=== PATIENT | female | born 1945 | race Caucasian/White ===

== ENCOUNTER 2018-11-19 12:37 | Outpatient (CLI) | payer MEDICARE, BC ==
[~2018-11-19] VITALS: Ht 171.4 cm; Wt 73.5 kg
[~2018-11-19 12:37] MED LIST: CALCIUM PO; CHOL50004 PO; EST1T PO; ESTR10TA VG; FURO-61 PO; HYDR-4353 PO; HYDR12.5 PO; LITH150C8 PO; LORA1TAB PO; MULT-1085 PO; NIFE60TA10 PO; SUMA100T PO; TRAZ-91 PO; [UNRECOGNIZED DRUG - CODE] PF
== END 2018-11-19 23:59 | disposition home or self-care (01) ==
LOC: RT 12:37
PROVIDERS: ATTEND Family Medicine
DX: J44.9 Chronic obstructive pulmonary disease, unspecified (principal); I10 Essential (primary) hypertension; G43.909 Migraine, unspecified, not intractable, without status migrainosus; Z87.891 Personal history of nicotine dependence
CPT/HCPCS: 94010; 94727; 94729

== ENCOUNTER 2019-09-15 10:01 | Emergency (ER) | payer MEDICARE, BC ==
[~2019-09-15] VITALS: Ht 170.2 cm; Wt 78.0 kg
[2019-09-15] MEDS ORDERED: ketorolac trometh. 30mg/ml inj. IV ONE (10:55)
[2019-09-15] MEDS ORDERED: ondansetron/PF 4mg/2ml inj IV ONE (10:55)
[2019-09-15] MEDS ORDERED: normal saline 1000ML IV soln IVB ONE (10:55)
[2019-09-15 11:30] LABS: EOSINOPHILS # (AUTO) 0.2 X10'3 (0-0.9); EOSINOPHILS % (AUTO) 5.5 % (0-6); HEMATOCRIT 38.7 % (35.0-45.0); HEMOGLOBIN 13.1 g/dl (12.0-16.0); LYMPHOCYTES # (AUTO) 1.1 X10'3 (1.1-4.8); LYMPHOCYTES % (AUTO) 29.4 % (21-51); MEAN CORPUSCULAR HEMOGLOBIN 31.2 PG (27.0-31.0); MEAN CORPUSCULAR VOLUME 91.7 FL (78-98); MEAN PLATELET VOLUME 7.1 FL (7.4-10.4); MONOCYTES # (AUTO) 0.5 X10'3 (0-0.9); MONOCYTES % (AUTO) 13.8 % (2-12); NEUTROPHILS # (AUTO) 1.8 X10'3 (1.8-7.7); NEUTROPHILS % (AUTO) 50.3 % (42-75); PLATELET COUNT 201 X10'3 (140-440); RED BLOOD COUNT 4.22 X10'6 (4.20-5.60); RED CELL DISTRIBUTION WIDTH 12.7 % (11.5-14.5); WHITE BLOOD COUNT 3.6 X10'3 (4.5-11.0)
[2019-09-15 11:46] LABS: ALANINE AMINOTRANSFERASE 23 U/L (12-78); ALBUMIN 4.2 G/DL (3.4-5.0); ALBUMIN/GLOBULIN RATIO 1.6 (1.1-1.5); ALKALINE PHOSPHATASE 43 IU/L (46-116); ANION GAP 4 (8-16); ASPARTATE AMINO TRANSFERASE 16 U/L (10-37); BILIRUBIN,TOTAL 0.5 MG/DL (0.1-1.0); BLOOD UREA NITROGEN 11 MG/DL (7-18); BUN/CREATININE RATIO 9.6 (6.6-38.0); CALCIUM 8.9 MG/DL (8.5-10.1); CHLORIDE 104 MMOL/L (99-107); CREATININE 1.14 MG/DL (0.40-0.90); GLUCOSE 94 MG/DL (70-104); LIPASE 115 U/L (73-393); POTASSIUM 4.3 MMOL/L (3.5-5.1); SODIUM 136 MMOL/L (135-145); TOTAL CARBON DIOXIDE 28.5 MMOL/L (24-32); TOTAL PROTEIN 6.9 G/DL (6.4-8.2); eGFR 46 ML/MIN
[2019-09-15 11:50] VITALS: BP 159/86
[2019-09-15 11:55] LABS: CLARITY,URINE CLOUDY (Clear); COLOR,URINE YELLOW (Yellow); GLUCOSE, URINE NEGATIVE (Neg); KETONES,URINE TRACE mg/dl (Neg); LEUKOCYTE ESTERASE ,URINE NEGATIVE (Neg); NITRITES, URINE NEGATIVE (Neg); OCCULT BLOOD,URINE NEGATIVE (Neg); PH,URINE 5.5 (4.8-8.0); PROTEIN,URINE NEGATIVE (Neg)
[2019-09-15 12:03] LABS: UA COLLECTION TYPE CLN CATCH MIDSTREAM
[2019-09-15 12:04] LABS: SQUAMOUS EPITHELIAL CELL,UR MANY /LPF (FEW)
[2019-09-15 12:05] LABS: MUCUS STRANDS MANY /LPF (Neg)
[2019-09-15 12:07] LABS: BACTERIA,URINE FEW /HPF (Neg); WBC,URINE 0-4 /HPF (0-4)
[2019-09-15] MEDS ORDERED: CIPR-230 PO (12:10)
[2019-09-15] MEDS ORDERED: CYCL-1 PO (12:46)
[2019-09-15] MEDS ORDERED: orphenadrine citrate 60mg/2ml inj. IM ONE (12:50)
== END 2019-09-15 13:10 | disposition home or self-care (01) ==
LOC: ER 10:02
DX: R10.11 Right upper quadrant pain (principal); R10.31 Right lower quadrant pain; M19.90 Unspecified osteoarthritis, unspecified site; Z79.899 Other long term (current) drug therapy; Z88.8 Allergy status to other drugs, medicaments and biological substances; Z88.5 Allergy status to narcotic agent
CPT/HCPCS: 36415; 74176; 80053; 81001; 83690; 85025; 96372; 96374; 96375; 99284; J1885; J2360; J2405; J7030

== ENCOUNTER 2020-01-29 14:25 | Emergency (ER) | payer MEDICARE, BC ==
[~2020-01-29] VITALS: Ht 170.2 cm; Wt 77.0 kg
[~2020-01-29 14:25] MED LIST changes: +CYCL-1 PO
--- NOTE | 2020-01-29 15:01 | NUR ---
Ubaldo Simmons, patient's ,
[2020-01-29 15:55] VITALS: BP 159/86
[2020-01-29] MEDS ORDERED: LORA-269 PO (16:03)
[2020-01-29] MEDS ORDERED: LORazepam 1 MG tablet PO ONE (16:05)
== END 2020-01-29 16:17 | disposition home or self-care (01) ==
LOC: ER 14:25
DX: F41.9 Anxiety disorder, unspecified (principal); Z76.0 Encounter for issue of repeat prescription; F31.9 Bipolar disorder, unspecified; M19.90 Unspecified osteoarthritis, unspecified site; Z56.0 Unemployment, unspecified; Z79.899 Other long term (current) drug therapy; Z88.8 Allergy status to other drugs, medicaments and biological substances; Z88.5 Allergy status to narcotic agent
CPT/HCPCS: 99283

== ENCOUNTER 2020-06-11 11:48 | Inpatient (IN) | payer MEDICARE, BC ==
[~2020-06-11] VITALS: Ht 170.2 cm; Wt 76.4 kg
[~2020-06-11 11:48] MED LIST changes: +LORA-269 PO
[2020-06-11 13:46] LABS: EOSINOPHILS # (AUTO) 0.1 X10'3 (0-0.9); EOSINOPHILS % (AUTO) 2.6 % (0-6); HEMATOCRIT 38.1 % (35.0-45.0); HEMOGLOBIN 12.7 g/dl (12.0-16.0); LYMPHOCYTES # (AUTO) 0.9 X10'3 (1.1-4.8); LYMPHOCYTES % (AUTO) 31.1 % (21-51); MEAN CORPUSCULAR HEMOGLOBIN 30.2 PG (27.0-31.0); MEAN CORPUSCULAR HGB CONC 33.5 g/dL (33.0-36.5); MEAN CORPUSCULAR VOLUME 90.2 FL (78-98); MEAN PLATELET VOLUME 7.2 FL (7.4-10.4); MONOCYTES # (AUTO) 0.4 X10'3 (0-0.9); MONOCYTES % (AUTO) 12.3 % (2-12); NEUTROPHILS # (AUTO) 1.6 X10'3 (1.8-7.7); PLATELET COUNT 208 X10'3 (140-440); RED BLOOD COUNT 4.22 X10'6 (4.20-5.60); RED CELL DISTRIBUTION WIDTH 13.3 % (11.5-14.5)
[2020-06-11 13:57] LABS: ALANINE AMINOTRANSFERASE 25 U/L (12-78); ALBUMIN 4.2 G/DL (3.4-5.0); ALBUMIN/GLOBULIN RATIO 1.3 (1.1-1.5); ALKALINE PHOSPHATASE 41 IU/L (46-116); ANION GAP 7 (8-16); ASPARTATE AMINO TRANSFERASE 21 U/L (10-37); BILIRUBIN,TOTAL 0.5 MG/DL (0.1-1.0); BLOOD UREA NITROGEN 14 MG/DL (7-18); CALCIUM 9.3 MG/DL (8.5-10.1); CHLORIDE 103 MMOL/L (99-107); GLUCOSE 94 MG/DL (70-104); POTASSIUM 3.8 MMOL/L (3.5-5.1); SODIUM 139 MMOL/L (135-145); TOTAL CARBON DIOXIDE 29.2 MMOL/L (24-32); TOTAL PROTEIN 7.4 G/DL (6.4-8.2); eGFR 54 ML/MIN
[2020-06-11 14:08] LABS: TOTAL CELLS COUNTED 100
[2020-06-11 14:09] LABS: PLATELET ESTIMATE NORMAL
[2020-06-11] MEDS ORDERED: fentaNYL/PF 50MCG/1 ML 2ML syringe IV ONE (14:20)
[2020-06-11] MEDS: nitroGLYCERIN 0.4mg SUBLingual tab SL PRN ×4 (14:41→17:20)
[2020-06-11] MEDS ORDERED: nitroGLYCERIN 0.2mg/hour patch TD ONE (15:15)
[2020-06-11] MEDS ORDERED: ondansetron/PF 4mg/2ml inj IV PRN (15:15)
[2020-06-11] MEDS ORDERED: potassium Cl 20 mEq SR tablet PO PRN ×2 (15:15)
[2020-06-11] MEDS ORDERED: potassium CL 10mEq/100ml bag 100 ML IV PRN ×2 (15:15)
[2020-06-11] MEDS ORDERED: acetaminophen 325mg tablet PO PRN (15:15)
[2020-06-11] MEDS ORDERED: magnesium 4gm in 100ml NS 100 ML IV PRN (15:15)
[2020-06-11] MEDS ORDERED: magnesium Cl slow-release 64mg tablet PO PRN (15:15)
[2020-06-11] MEDS ORDERED: magnesium 2GM in 50ml NS 50 ML IV PRN (15:15)
[2020-06-11] MEDS ORDERED: enoxaparin 100mg/ml syringe SUBCUT ONE (15:15)
[2020-06-11] MEDS ORDERED: TRAZ-256 PO (15:36)
[2020-06-11] MEDS ORDERED: LAMO150T6 PO (15:36)
[2020-06-11] MEDS ORDERED: ZOLP10TA PO (15:36)
[2020-06-11] MEDS ORDERED: FLUT1BLS9 IH (15:36)
[2020-06-11] MEDS ORDERED: ALBU8.5H8 IH (15:36)
[2020-06-11] MEDS ORDERED: PRAZ5CAP PO (15:36)
[2020-06-11] MEDS ORDERED: GALC120S SQ (15:36)
--- NOTE | 2020-06-11 15:51 | NUR ---
report called, echo at bedside, will transfer when test is done.
--- NOTE | 2020-06-11 15:55 | NUR ---
Patient in room MED 312. I have received report from Gary CONTE RN and had the opportunity to ask questions and assume patient care.
[2020-06-11 16:30] VITALS: BP 148/82
--- NOTE | 2020-06-11 16:30 | NUR ---
Pt arrived to room 312. A&O x4. No s/s of distress. VSS. Oreinted to room call light etc. Lungs CTA bilat. BS x4 soft non-tender. No edema. Pt states no CP at the moment. This nurse agrees with further assessment done by the nurse in ER.
[2020-06-11 17:00] VITALS: BP 104/62
--- NOTE | 2020-06-11 17:10 | NUR ---
Checked on pt she stated she had some chest pressure and pain 7/10 mid-sternal giving NTG per order and monitoring. She denies any other s/s.
[2020-06-11 17:20] VITALS: BP 130/64
--- NOTE | 2020-06-11 17:29 | NUR ---
Page to Dr Ness PAGER ID: [phone] MESSAGE: [phone] Navid Simmons. Has had NTG x 3 and still has chest pressure and 6/10 pain. Fentanyl was given in ER with 1 dose NTG and worked lasted from 1441 to now. No other s/s. Brittney [phone] Thanks
[2020-06-11 17:40] VITALS: BP 111/57
--- NOTE | 2020-06-11 18:30 | NUR ---
PAGER ID: [phone] MESSAGE: [phone]: Navid Simmons: Has been on Ativan for years 1 MG BID, has withdrawals without. Having a panic attack now, pt crying, shaking. Zunilda [id number]
[2020-06-11] MEDS ORDERED: GALCANEZUMAB GNLM SQ SCH (18:55)
[2020-06-11] MEDS ORDERED: nitroGLYCERIN 0.4mg SUBLingual tab SL PRN (18:55)
[2020-06-11] MEDS ORDERED: LORazepam 1 MG tablet PO PRN (18:55)
[2020-06-11] MEDS ORDERED: ESTRADIOL VG SCH (18:55)
[2020-06-11] MEDS ORDERED: non-formulary drug (Zolpidem Tartrate (Ambien) 1 TAB) PO PRN (18:55)
[2020-06-11] MEDS ORDERED: furosemide 20MG tablet PO PRN (18:55)
[2020-06-11] MEDS ORDERED: ALBUTEROL INHALER 1 PUFF/90 MCG INHALER IH PRN (18:55)
[2020-06-11] MEDS ORDERED: metoprolol tartrate 1mg/ml inj IV PRN (18:55)
[2020-06-11] MEDS ORDERED: regadenoson 0.4mg/5ml syringe IV ONE (18:55)
[2020-06-11] MEDS ORDERED: aminophylline 250mg/10ml inj. IV PRN (18:55)
--- NOTE | 2020-06-11 19:06 | NUR ---
PAGER ID: [phone] MESSAGE: [phone] pt Troy PERRY left AMA despite medications being continued.
[2020-06-11] MEDS ORDERED: K and/or MAG REPLACEMENT MC SCH (20:00)
[2020-06-11] MEDS ORDERED: FLUTICASONE PROPION IH SCH (20:00)
[2020-06-11] MEDS ORDERED: non-formulary drug (Lamotrigine 1 TAB) PO SCH (20:00)
[2020-06-11] MEDS ORDERED: SALMETEROL IH SCH (20:00)
[2020-06-11] MEDS ORDERED: docusate sod 100mg capsule PO SCH (20:00)
[2020-06-11] MEDS ORDERED: non-formulary drug (Trazodone HCl 3 TAB) PO SCH (21:00)
[2020-06-11] MEDS ORDERED: prazosin 5mg capsule PO SCH (21:00)
[2020-06-12] MEDS ORDERED: nitroGLYCERIN 1gm ointment UD TP SCH
[2020-06-12] MEDS ORDERED: estradiol 1mg tablet PO SCH (08:00)
== END 2020-06-11 19:03 | disposition left against medical advice (07) | DRG 313 ==
LOC: ER 11:48 → ED HOLD 15:15 → MED 3N 16:34
PROVIDERS: ADMIT Internal Medicine; ATTEND Internal Medicine
DX: R07.9 Chest pain, unspecified (principal); Z96.641 Presence of right artificial hip joint; Z53.29 Procedure and treatment not carried out because of patient's decision for other reasons; F41.8 Other specified anxiety disorders; R55 Syncope and collapse; Z90.710 Acquired absence of both cervix and uterus; Z88.8 Allergy status to other drugs, medicaments and biological substances
CPT/HCPCS: 36415; 71045; 80053; 84484; 85007; 85025; 87081; 93005; 93306; 96374; 99285; G0378; J1650; J3010

== ENCOUNTER 2020-06-24 06:01 | Day surgery (SDC) | payer MEDICARE, BC ==
[2020-06-23 10:36] LABS: EOSINOPHILS # (AUTO) 0.1 X10'3 (0-0.9); EOSINOPHILS % (AUTO) 4.2 % (0-6); HEMATOCRIT 39.1 % (35.0-45.0); HEMOGLOBIN 13.2 g/dl (12.0-16.0); LYMPHOCYTES # (AUTO) 0.9 X10'3 (1.1-4.8); LYMPHOCYTES % (AUTO) 33.1 % (21-51); MEAN CORPUSCULAR HGB CONC 33.7 g/dL (33.0-36.5); MEAN CORPUSCULAR VOLUME 91.8 FL (78-98); MEAN PLATELET VOLUME 7.1 FL (7.4-10.4); MONOCYTES # (AUTO) 0.4 X10'3 (0-0.9); MONOCYTES % (AUTO) 13.1 % (2-12); NEUTROPHILS # (AUTO) 1.4 X10'3 (1.8-7.7); NEUTROPHILS % (AUTO) 48.6 % (42-75); PLATELET COUNT 203 X10'3 (140-440); RED BLOOD COUNT 4.25 X10'6 (4.20-5.60); RED CELL DISTRIBUTION WIDTH 13.4 % (11.5-14.5); WHITE BLOOD COUNT 2.8 X10'3 (4.5-11.0)
[2020-06-23 10:49] LABS: PARTIAL THROMBOPLASTIN TIME 27 SECONDS (22-32)
[2020-06-23 10:51] LABS: ALBUMIN 3.8 G/DL (3.4-5.0); ANION GAP 3 (8-16); BLOOD UREA NITROGEN 17 MG/DL (7-18); BUN/CREATININE RATIO 19.3 (6.6-38.0); CHLORIDE 103 MMOL/L (99-107); CREATININE 0.88 MG/DL (0.40-0.90); GLUCOSE 100 MG/DL (70-104); POTASSIUM 4.5 MMOL/L (3.5-5.1); SODIUM 136 MMOL/L (135-145); TOTAL CARBON DIOXIDE 29.8 MMOL/L (24-32); eGFR 62 ML/MIN
[2020-06-23 11:06] LABS: TOTAL CELLS COUNTED 100
[2020-06-23 11:07] LABS: PLATELET ESTIMATE NORMAL
[2020-06-24] VITALS (11 sets, daily range): BP systolic 123–139; BP diastolic 60–75
[~2020-06-24] VITALS: Ht 170.2 cm; Wt 74.9 kg
[~2020-06-24 06:01] MED LIST changes: +ALBU8.5H8 IH; -CALCIUM PO; -CHOL50004 PO; -CYCL-1 PO; +FLUT1BLS9 IH; +GALC120S SQ; -HYDR-4353 PO; -HYDR12.5 PO; +LAMO150T6 PO; -LITH150C8 PO; -LORA-269 PO; -MULT-1085 PO; -NIFE60TA10 PO; +PRAZ5CAP PO; -SUMA100T PO; +TRAZ-256 PO; -TRAZ-91 PO; +ZOLP10TA PO; -[UNRECOGNIZED DRUG - CODE] PF
[2020-06-24] MEDS ORDERED: diphenhydrAMINE 25mg capsule PO PRN (06:20)
[2020-06-24] MEDS ORDERED: LORazepam 0.5 MG tablet PO PRN (06:20)
[2020-06-24] MEDS ORDERED: LIDOcaine/PRILOcaine 5gm cream TP ONE (06:25)
[2020-06-24] MEDS ORDERED: MULT-1085 PO (06:32)
[2020-06-24] MEDS ORDERED: sodium bicarbonate (8.4%) inj. 150 ML in dextrose 5%-water 1,000 ML IV ONE (07:00)
[2020-06-24] MEDS ORDERED: fentaNYL/PF 50MCG/1 ML 2ML syringe ONE (07:46)
[2020-06-24] MEDS ORDERED: nitroGLYCERIN-Tridil 50MG/D5W 250 ML IV ONE (07:46)
[2020-06-24] MEDS ORDERED: LIDOcaine 1% (10mg/ml)w/preservative injection 20ml MDV ONE (07:46)
[2020-06-24] MEDS ORDERED: midazolam 2 mg/2 ml injection ONE (07:46)
[2020-06-24] MEDS ORDERED: verapamil 2.5 mg/ml inj IV ONE (07:46)
[2020-06-24] MEDS ORDERED: iohexol 350MG/ML 100ml bottle IV ONE (07:47)
[2020-06-24] MEDS ORDERED: heparin 1,000unit/ml 10ml vial 10 ML ONE (07:47)
[2020-06-24] MEDS ORDERED: iohexol 350 MG/ML 50ML vial IV ONE (07:47)
--- NOTE | 2020-06-24 12:40 | NUR ---
REMOVED VASCULAR BAND, CLEANSED SITE GENTLY WITH STERILE NS AND DRESSED WITH STERILE 2X2 AND TEGADERM. TOPPED WITH FOLDED 4X4 AND COBAN FOR COMFORT AND SUPPORT, PT AWARE THAT SHE MAY LOOSEN OR REMOVE 4X4'S AND COBAN AT ANY TIME FOR COMFORT. TEGADERM TO BE REMOVED BEFORE SHOWER, IN 24-48 HOURS. PT STATES UNDERSTANDING.
== END 2020-06-24 14:00 | disposition home or self-care (01) ==
LOC: SSTAY O 06:01
PROVIDERS: ATTEND Internal Medicine Cardiovascular Disease
DX: R94.31 Abnormal electrocardiogram [ECG] [EKG] (principal); I25.10 Atherosclerotic heart disease of native coronary artery without angina pectoris; I10 Essential (primary) hypertension; G43.909 Migraine, unspecified, not intractable, without status migrainosus; M19.90 Unspecified osteoarthritis, unspecified site; G47.00 Insomnia, unspecified; J45.909 Unspecified asthma, uncomplicated; K21.9 Gastro-esophageal reflux disease without esophagitis; D70.9 Neutropenia, unspecified; I36.1 Nonrheumatic tricuspid (valve) insufficiency; Z90.710 Acquired absence of both cervix and uterus; Z98.890 Other specified postprocedural states; Z96.649 Presence of unspecified artificial hip joint; Z98.1 Arthrodesis status; Z87.891 Personal history of nicotine dependence; Z72.89 Other problems related to lifestyle; Z88.8 Allergy status to other drugs, medicaments and biological substances; Z88.5 Allergy status to narcotic agent; Z79.01 Long term (current) use of anticoagulants
CPT/HCPCS: 80048; 85025; 85610; 85730; 93005; 93460; 99152; 99153; C1769; C1894; J1644; J2001; J2250; J3010; Q0163; Q9967; 85007; A4620; A5120; C1751; J3490

== ENCOUNTER 2022-06-14 13:21 | Emergency (ER) | payer MEDICARE, BC ==
[~2022-06-14] VITALS: Ht 170.2 cm; Wt 86.0 kg
[~2022-06-14 13:21] MED LIST changes: +ALBU8.5H17 IH; -ALBU8.5H8 IH; +MULT-1085 PO
[2022-06-14 13:41] VITALS: BP 146/76
[2022-06-14 15:40] LABS: BASOPHILS % (AUTO) 0.8 % (0-1); EOSINOPHILS # (AUTO) 0.1 X10'3 (0-0.9); EOSINOPHILS % (AUTO) 2.7 % (0-6); HEMATOCRIT 37.3 % (35.0-45.0); HEMOGLOBIN 12.6 g/dl (12.0-16.0); LYMPHOCYTES # (AUTO) 0.7 X10'3 (1.1-4.8); LYMPHOCYTES % (AUTO) 14.8 % (21-51); MEAN CORPUSCULAR HEMOGLOBIN 29.9 PG (27.0-31.0); MEAN CORPUSCULAR HGB CONC 33.7 g/dL (33.0-36.5); MEAN CORPUSCULAR VOLUME 88.7 FL (78-98); MEAN PLATELET VOLUME 6.9 FL (7.4-10.4); MONOCYTES # (AUTO) 0.6 X10'3 (0-0.9); MONOCYTES % (AUTO) 12.5 % (2-12); NEUTROPHILS # (AUTO) 3.1 X10'3 (1.8-7.7); NEUTROPHILS % (AUTO) 69.2 % (42-75); PLATELET COUNT 204 X10'3 (140-440); RED BLOOD COUNT 4.21 X10'6 (4.20-5.60); RED CELL DISTRIBUTION WIDTH 13.3 % (11.5-14.5); WHITE BLOOD COUNT 4.5 X10'3 (4.5-11.0)
[2022-06-14 15:45] LABS: ALANINE AMINOTRANSFERASE 22 U/L (12-78); ALBUMIN 4.2 G/DL (3.4-5.0); ALBUMIN/GLOBULIN RATIO 1.4 (1.1-1.5); ALKALINE PHOSPHATASE 65 IU/L (46-116); ANION GAP 6 (8-16); ASPARTATE AMINO TRANSFERASE 16 U/L (10-37); BILIRUBIN,TOTAL 0.4 MG/DL (0.1-1.0); BLOOD UREA NITROGEN 13 MG/DL (7-18); BUN/CREATININE RATIO 12.3 (6.6-38.0); CHLORIDE 102 MMOL/L (99-107); CREATININE 1.06 MG/DL (0.40-0.90); GLUCOSE 101 MG/DL (70-104); POTASSIUM 4.2 MMOL/L (3.5-5.1); SODIUM 137 MMOL/L (135-145); TOTAL CARBON DIOXIDE 29.2 MMOL/L (24-32); TOTAL PROTEIN 7.3 G/DL (6.4-8.2); eGFR 50 ML/MIN
== END 2022-06-14 16:17 | disposition left against medical advice (07) ==
LOC: ER 13:21
DX: R07.9 Chest pain, unspecified (principal); Z53.21 Procedure and treatment not carried out due to patient leaving prior to being seen by health care provider
CPT/HCPCS: 36415; 71045; 80053; 83880; 84484; 85025; 93005

== ENCOUNTER 2022-09-14 13:30 | Emergency (ER) | payer MEDICARE, BC ==
[~2022-09-14] VITALS: Ht 167.6 cm; Wt 65.0 kg
--- NOTE | 2022-09-14 13:47 | NUR ---
OHN at bedside
--- NOTE | 2022-09-14 13:53 | NUR ---
Per MD PARNELL pt to be down graded to Level 2
[2022-09-14 14:22] LABS: BASOPHILS % (AUTO) 0.7 % (0-1); EOSINOPHILS # (AUTO) 0.1 X10'3 (0-0.9); EOSINOPHILS % (AUTO) 2.8 % (0-6); HEMATOCRIT 37.5 % (35.0-45.0); HEMOGLOBIN 12.6 g/dl (12.0-16.0); LYMPHOCYTES # (AUTO) 0.9 X10'3 (1.1-4.8); LYMPHOCYTES % (AUTO) 25.3 % (21-51); MEAN CORPUSCULAR HEMOGLOBIN 30.9 PG (27.0-31.0); MEAN CORPUSCULAR HGB CONC 33.6 g/dL (33.0-36.5); MEAN CORPUSCULAR VOLUME 92.2 FL (78-98); MEAN PLATELET VOLUME 7.1 FL (7.4-10.4); MONOCYTES # (AUTO) 0.6 X10'3 (0-0.9); MONOCYTES % (AUTO) 17.7 % (2-12); NEUTROPHILS # (AUTO) 1.9 X10'3 (1.8-7.7); NEUTROPHILS % (AUTO) 53.5 % (42-75); PLATELET COUNT 208 X10'3 (140-440); RED BLOOD COUNT 4.07 X10'6 (4.20-5.60); RED CELL DISTRIBUTION WIDTH 14.7 % (11.5-14.5); WHITE BLOOD COUNT 3.6 X10'3 (4.5-11.0)
[2022-09-14 14:31] LABS: APTT 27 SECONDS (22-32)
[2022-09-14 14:37] LABS: ALANINE AMINOTRANSFERASE 29 U/L (12-78); ALBUMIN 3.9 G/DL (3.4-5.0); ALBUMIN/GLOBULIN RATIO 1.3 (1.1-1.5); ALKALINE PHOSPHATASE 59 IU/L (46-116); ANION GAP 9 (8-16); ASPARTATE AMINO TRANSFERASE 17 U/L (10-37); BILIRUBIN,TOTAL 0.4 MG/DL (0.1-1.0); BLOOD UREA NITROGEN 17 MG/DL (7-18); BUN/CREATININE RATIO 14.9 (6.6-38.0); CALCIUM 9.1 MG/DL (8.5-10.1); CHLORIDE 101 MMOL/L (99-107); CREATININE 1.14 MG/DL (0.40-0.90); GLUCOSE 98 MG/DL (70-104); POTASSIUM 3.6 MMOL/L (3.5-5.1); SODIUM 138 MMOL/L (135-145); TOTAL PROTEIN 6.8 G/DL (6.4-8.2); eGFR 46 ML/MIN
[2022-09-14 14:48] LABS: PLATELET ESTIMATE NORMAL; TOTAL CELLS COUNTED 100
[2022-09-14 16:01] LABS: CLARITY,URINE CLEAR (Clear); COLOR,URINE YELLOW (Yellow); GLUCOSE, URINE NEGATIVE (Neg); KETONES,URINE NEGATIVE (Neg); LEUKOCYTE ESTERASE ,URINE NEGATIVE (Neg); NITRITES, URINE NEGATIVE (Neg); OCCULT BLOOD,URINE TRACE-INTACT (Neg); PH,URINE 5.5 (4.8-8.0); PROTEIN,URINE NEGATIVE (Neg); UROBILINOGEN,URINE 0.2 E.U/dL (0.2-1.0)
[2022-09-14 16:05] LABS: UA COLLECTION TYPE CLN CATCH MIDSTREAM
[2022-09-14 16:08] LABS: SQUAMOUS EPITHELIAL CELL,UR MODERATE /LPF (FEW)
[2022-09-14 16:10] LABS: BACTERIA,URINE FEW /HPF (Neg); RBC,URINE 0-2 /HPF (0-2)
[2022-09-14 16:11] LABS: MUCUS STRANDS FEW /LPF (Neg); WBC,URINE 0-4 /HPF (0-4)
[2022-09-14 16:23] VITALS: BP 150/74
== END 2022-09-14 16:25 | disposition home or self-care (01) ==
LOC: ER 13:30
DX: R42 Dizziness and giddiness (principal); R53.1 Weakness; R41.0 Disorientation, unspecified; F31.9 Bipolar disorder, unspecified; Z88.8 Allergy status to other drugs, medicaments and biological substances; Z88.6 Allergy status to analgesic agent; Z88.5 Allergy status to narcotic agent
CPT/HCPCS: 70450; 71045; 80053; 81001; 82948; 84484; 85007; 85025; 85610; 85730; 93005; 99285

== ENCOUNTER 2024-05-07 15:26 | Emergency (ER) | payer MEDICARE, BC ==
[~2024-05-07] VITALS: Ht 170.2 cm; Wt 81.4 kg
[2024-05-07 15:29] VITALS: TEMP 98.4
[2024-05-07] MEDS: ondansetron/PF 4mg/2ml inj IV ONE (16:09)
[2024-05-07] MEDS: HYDROcodone/acetaminophen 10/325mg tab PO ONE (16:10)
[2024-05-07] MEDS: LIDOcaine 1% 30ml preserv. free vial SQ STA (17:11)
[2024-05-07 18:39] VITALS: BP 165/85; PULSE 74; RESP 16; O2SAT 95
== END 2024-05-07 18:41 | disposition home or self-care (01) ==
LOC: ER 15:26
DX: S01.81XA Laceration without foreign body of other part of head, initial encounter (principal); Z88.5 Allergy status to narcotic agent; Z88.6 Allergy status to analgesic agent; Z88.8 Allergy status to other drugs, medicaments and biological substances; W01.0XXA Fall on same level from slipping, tripping and stumbling without subsequent striking against object, initial encounter; Y93.89 Activity, other specified; Y92.481 Parking lot as the place of occurrence of the external cause; Y99.8 Other external cause status
CPT/HCPCS: 12013; 70450; 72125; 73030; 93005; 96374; 99285; A6222; A6258; A6402; J2405; Z7610; A6449

== ENCOUNTER 2024-09-05 13:28 | Outpatient (CLI) | payer MEDICARE, BC | END 2024-09-05 23:59 | disposition home or self-care (01) | LOC: RAD 13:28 | PROVIDERS: ATTEND Podiatrist Foot & Ankle Surgery | DX: M19.072 Primary osteoarthritis, left ankle and foot (principal); M20.22 Hallux rigidus, left foot; M79.89 Other specified soft tissue disorders; M79.672 Pain in left foot | CPT/HCPCS: 73700 ==

== ENCOUNTER 2025-04-30 16:09 | Outpatient (CLI) | payer MEDICARE, BC ==
[~2025-04-30 16:09] MED LIST changes: +ZOLP-679 PO; -ZOLP10TA PO
--- NOTE | 2025-05-01 08:31 | RADIOLOGY REPORT ---
[facility] EXAM[facility]ATION: MR MRI HEAD INDICATION: OTHER ABNORMALITIES OF GAIT AND MOBILITY COMPARISON: CT CT HEAD on DOS: 09/14/2022 TECHNIQUE: Multiplanar, multisequence magnetic resonance imaging of the brain was performed without the use of i ntravenous contrast. FINDINGS: No evidence of acute infarct. No intracranial hemorrhage. No mass effect. Generalized volume loss. Encephalomalacia in the bilateral parietal lobes. There is periventricular/deep white matter T2/FLAIR hyperintensity is nonspecific, but most commonly associated with chronic microvascular disease. The ventricles and sulci are normal in size for age. Clear basal cisterns. Flow voids in the major intracranial vessels are maintained. No abnormality of the orbits. Paranasal sinuses and mastoid air cells are clear. No abnormality of the visualized osseous structures and extracranial soft tissues. IMPRESSION: 1. No acute infarct, intracranial hemorrhage, mass effect, or hydrocephalus.
== END 2025-04-30 23:59 | disposition home or self-care (01) ==
LOC: MRI02 16:09
PROVIDERS: ATTEND Nurse Practitioner Family
DX: G93.89 Other specified disorders of brain (principal); R26.89 Other abnormalities of gait and mobility; R25.1 Tremor, unspecified; R29.6 Repeated falls; R40.4 Transient alteration of awareness
CPT/HCPCS: 70551

== ENCOUNTER 2025-06-25 22:28 | Inpatient (IN) | payer MEDICARE, BC ==
[~2025-06-25] VITALS: Ht 170.2 cm; Wt 76.0 kg
--- NOTE | 2025-06-25 22:39 | Physician Documentation ---
History of Present Illness ~ Chief Complaint: Rib pain Stated Complaint: FALL Time Seen by MD: 22:35 OK to notify your PCP?: Yes Primary Medical Doctor: DARELL PANIAGUA Source: patient, RN/MD, EMS, RN notes reviewed, EMS notes reviewed, old records Mode of Arrival: EMS Exam Limitations: no limitations HPI 13 This patient is an 79 y/o female BIBEMS to ED with chief complaint of right rib pain after a mechanical fall at home. Patient states that she falls frequently, and tonight called EMS after slipping, causing her to fall onto the floor, l anding on her right side. She now complains of severe pain to her right ribs. Patient denies any hip pain for EMS. She did have a minor head strike, but is not on blood thinner and did not experience any LOC. She did not take anything for pain prior to arrival. Patient notes she has poor balance and falls frequenty. She believes that she may have Parkinsons and is currently being worked up for this. Her last MRI was a few months ago and normal. Patient denies any other associated symptoms at this time. Patient denies any other alleviating or exacerbating factors. Tetanus within 5 Years?: No Allergies: Coded Allergies: prochlorperazine edisylate (Verified Adverse Reaction, Severe, DROOPING OF FACE AND LEFT SIDE OF BODY, 06/25/25) prochlorperazine maleate (Verified Adverse Reaction, Severe, DROOPING OF FACE AND LEFT SIDE OF BODY, 06/25/25) carbamazepine (Verified Adverse Reaction, Unknown, BLOOD IN URINE, 06/25/25) meperidine HCl (Verified Adverse Reaction, Unknown, NAUSEA, 06/25/25) metoclopramide HCl (Verified Adverse Reaction, Unknown, STIFFNESS OF FINGER AND BACK, 06/25/25) morphine (Verified Adverse Reaction, Unknown, VOMITTING, 06/25/25) Uncoded Allergies: STRAWBERRIES (Allergy, Intermediate, 07/04/11) RASH Active Prescriptions See Medication Reconciliation Form. Medication Reconciliation Scheduled Estradiol (Vagifem), 1 TABLET VG SUN,SUN, (Reported) Estradiol* (Estrace*), 1 TAB PO DAILY, (Reported) Fluticasone Propion/Salmeterol (Wixela 100-50 Inhub), 1 PUFF IH BID, (Reported) Galcanezumab-Gnlm (Emgality Syringe), 1 ML SQ [id number], (Reported) Lamotrigine (Lamotrigine), 1 TAB PO BID, (Reported) Multivitamin (Multi Vitamin Daily), 1 TAB PO DAILY, (Reported) Prazosin Hcl (Minipress), 1 CAP PO HS, (Reported) Prazosin Hcl (Prazosin Hcl), 1 CAP PO DAILY, (Reported) Prazosin Hcl (Prazosin Hcl), 1 CAP PO HS, (Reported) Trazodone HCl (Trazodone HCl), 3 TAB PO HS, (Reported) Scheduled PRN Albuterol Sulfate (Proair Hfa), 2 PUFFS IH Q4H PRN for SOB or wheezing, (Reported) Furosemide (Furosemide), 40 MG PO DAILY PRN for SWELLING, (Reported) Lorazepam* (Ativan*), 1-2 MG PO TID PRN PRN for anxiety/agitation, (Reported) Zolpidem Tartrate (Ambien), 1 TAB PO HS PRN for sleep, (Reported) Past Medical History Past Medical History: Migraine, Sinusitis, Valve Insuffciency, UTI, Osteoarthritis, Anxiety, Bipolar, Depression Past Surgical History: hysterectomy, orthopedic surgeries Smoking Status: Never smoker Alcohol Use: Occasionally Drug Use: none Lives with: Spouse Lives In: Home Occupation: unemployed Review of Systems All Other Systems at this time: Reviewed and Negative ROS As stated above in the HPI, otherwise all systems are reviewed and negative. Physical Exam Vital Signs: RN Vital Signs have been reviewed: Yes, Temperature: 98.5, Source: Oral, Heart Rate: 79, Respiratory Rate: 19, BP: 149/76, Weight: 76.000 Oxygen Flow Rate: 0 Physical Exam General: The patient is uncomfortable appearing but otherwise well developed, well nourished, nontoxic appearing. Skin: [place], warm and dry with no rashes. HEENT: Abrasion to the left forehead. Head was otherwise normocephalic and atraumatic. Eyes - pupils equal, round, reactive to light and accommodation. Extraocular movements were intact. Conjunctivae were nonicteric. The mouth and oropharynx were clear with moist mucous membranes. There were no pharyngeal exudates or erythema. Neck: Supple and nontender. There was no jugular venous distention, lymphadenopathy, thyromegaly or masses. Chest: Right ribs are tender and a click is felt with palpation. Splinting; Short, shallow breath sounds bilaterally. Lungs otherwise clear to auscultation bilaterally without wheezes, rales or rhonchi. No accessory muscle use. No dullness to percussion. Heart: Rate regular and rhythmic. S1, S2. No murmurs. Palpation of the chest wall was normal. No rubs or thrills. Abdomen: Soft, nontender and nondistended. Positive bowel sounds. No guarding or rebound. No hepatosplenomegaly or palpable masses. Extremities: No cyanosis, clubbing or edema. The patient moves all extremities. Pulses were equal and symmetric. Neurologic: Motor and sensation grossly intact. A & O x4. Psychologic: The patient was oriented to person, place and time. Progress Progress Note 0124: Paged hospitalist Results/Orders Reviewed/noted all lab results: Yes Results/Orders Orders - ANJEL NG MD Uni Ribs With Pa Chest (06/25/25 22:38) Ct Head (06/26/25 00:20) Ct Chest (06/26/25 00:20) Page Hospitalist (06/26/25 01:24) Fill Out Med Reconciliation (06/26/25 01:24) Oxygen (06/26/25 01:42) Completed Orders - ANJEL NG MD Cbc/Diff (06/25/25 22:36) BMP (06/25/25 22:36) Uni Ribs With Pa Chest (06/25/25 22:38) Ct Head (06/26/25 00:20) Ct Chest (06/26/25 00:20) Hydromorphone 0.5 Mg/0.5 Ml/Pf (Dilaudid (06/26/25 00:15) Hgb A1c (06/25/25 22:46) Vital Signs 06/25/25 06/25/25 06/25/25 06/26/25 22:32 22:37 23:14 00:28 Temp 98.5 98.5 Pulse 79 71 Resp 19 16 16 B/P (MAP) 149/76 155/74 (101) Pulse Ox 94 O2 Flow Rate 0 0 06/26/25 01:19 Temp 98.5 Pulse 77 Resp 19 B/P (MAP) 152/77 (102) Pulse Ox 95 O2 Flow Rate 0 Laboratory Tests Test 06/25/25 22:46 White Blood Count 4.7 Red Blood Count 3.99 L Hemoglobin 12.4 Hematocrit 37.5 Mean Corpuscular Volume 93.8 Mean Corpuscular Hemoglobin 31.0 Mean Corpuscular Hemoglobin Concent 33.0 Red Cell Distribution Width 14.3 Platelet Count 216 Mean Platelet Volume 6.9 L Neutrophils (%) (Auto) 53.9 Lymphocytes (%) (Auto) 28.8 Monocytes (%) (Auto) 11.4 Eosinophils (%) (Auto) 5.0 Basophils (%) (Auto) 0.9 Neutrophils # (Auto) 2.5 Lymphocytes # (Auto) 1.3 Monocytes # (Auto) 0.5 Eosinophils # (Auto) 0.2 Basophils # (Auto) 0.0 CBC Comment Sodium Level 143 Potassium Level 4.0 Chloride Level 106 Carbon Dioxide Level 29.0 Anion Gap 8 Blood Urea Nitrogen 20 H Creatinine 0.81 Estimated GFR/1.73 m2 68 BUN/Creatinine Ratio 24.7 H Glucose Level 90 Hemoglobin A1c 5.1 Calcium Level 9.1 Albumin 3.9 Chemistry Comments Re-Evaluation Re-Evaluation : Re-Evaluation: Improved, Unchanged Progress Patient was seen and examined. Patient is given reassurance. Patient on physical exam definitely had rib fractures there is a click and pop noted. She is having some pain. Also splinting and uncomfortable. X-ray showed some displaced fractures as well as some subcutaneous air which is somewhat concerning for possible pneumothorax. CT scan was then repeated and showed a pneumothorax. It was small person was placed on oxygen. Patient was then admitted to the hospitalist service no chest tube was needed surgery was consulted. Laboratory work shows a CBC WBC of 4.7 with a hemoglobin 12 hematocrit 37 normal platelets within normal limits. Chemistry also within normal limits. Coagulation is also within normal limits. Patient received Dilaudid pain medications doing much better hospitalist was then consulted as well as a surgeon in the patient was then admitted for further workup and care. Continuous document design specialist interpretation shows normal sinus rhythm heart rate 70s, no ectopy, normal, my interpretation. Pulse oximetry monitor interpretation shows normal oxygenation at 94% room air, normal, my interpretation. Borderline low otherwise normal. EKG/XRAY/CT/US/VASC/MRI Chest X-Ray : Interpreted By: both Additional Comments [facility] [address] [facility] [place], [place] - [address] DIAGNOSTIC RADIOLOGY Patient: KYLE MELENDEZ Medical Record: [id number] [place] [address] : 1945, Age: 79 Sex: Female Location: ER Patient Status: [facility] ER Service Date/Time: 06/25/252237 Ordering Physician: ANJEL NG MD Exam: UNI RIBS WITH PA CHEST FRONTAL CHEST AND right RIB RADIOGRAPHS HISTORY: trauma right lower rib pain TECHNIQUE: Multiple views of the right ribs with frontal view of the chest. COMPARISON: None. FINDINGS/IMPRESSION: Acute displaced fractures of the lateral right 9th and 10th ribs. There is subcutaneous emphysema. No definite pneumothorax, though CT would be more sensitive in further evaluation if clinically indicated. Electronically Signed by:HILDA MELENDEZ MD Date & Time: 06/25/252329 Dictated by: HILDA MELENDEZ MD Dictation date and time: 06/25/25 2312 Primary Care Provider: NO PRIMARY CARE PROVIDER cc: ANJEL NG MD ~ EDMD DR. NG REVIEWED IMAGES AND AGREES WITH ABOVE FINDINGS CT #1: Interpreted By: both CT: head With Contrast?: No Impression [facility] [address] , [place], [place] - [address] CAT SCAN Patient: KYLE MELENDEZ Medical Record: [id number] [facility] : 1945, Age: 79 Sex: Female Location: ER Patient Status: [facility] ER Service Date/Time: 06/26/2519 Ordering Physician: ANJEL NG MD Exam: CT HEAD EXAM: CT CT HEAD INDICATION: trauma TECHNIQUE: CT of the head without intravenous contrast. Radiation Dose Information: CT Dose: CTDI volume is 57.29 mGy. Dose-length product is 1023.59 mGy*cm The dose indicators for CT are the volume Computed Tomography (CT) Dose Index (CTDIvol) and the Dose Length Product (DLP), and are measured in units of mGy and mGy-cm, respectively. These indicators are not patient dose, but values generated from the CT scanner acquisition factors. The report includes radiation exposure data for exposures received during this examination. COMPARISON: MR MRI HEAD on DOS: 04/30/25, CT CT HEAD on DOS: 05/07/24, CT STROKE ALERT on DOS: 09/14/22 FINDINGS: No acute territorial infarct, intracranial hemorrhage, or mass effect. There are global involutional changes with compensatory prominence of the ventricles and sulci. Patchy periventricular and subcortical white matter hypoattenuation is nonspecific but may be related to small vessel ischemic disease. The orbits are normal. The paranasal sinuses and mastoid air cells are clear. The osseous structures are unremarkable. IMPRESSION: 1. No acute territorial infarct, intracranial hemorrhage, or mass effect. 2. Age-related involutional changes. Chronic microvascular changes. Electronically Signed by:HILDA MELENDEZ MD Date & Time: 06/26/2548 Dictated by: HILDA MELENDEZ MD Dictation date and time: 06/26/2548 Primary Care Provider: NO PRIMARY CARE PROVIDER cc: ANJEL NG MD ~ EDMD DR. NG REVIEWED IMAGES AND AGREES WITH ABOVE FINDINGS CT #2: Interpreted By: both CT: chest With Contrast?: Yes Impression [address], [facility] [address] CAT SCAN Patient: KYLE MELENDEZ Medical Record: [id number] [facility] : 1945, Age: 79 Sex: Female Location: ER Patient Status: [facility] ER Service Date/Time: 06/26/2519 Ordering Physician: ANJEL NG MD Exam: CT CHEST EXAM: CT CT CHEST History: trauma Comparison Study: None TECHNIQUE: Multidetector CT of the chest was performed. Imaging was performed without IV contrast. Axial, coronal, and sagittal multiplanar reformats were obtained from the axial data set by the technologist. Radiation Dose : CTDI vol 21.43 mGy, DLP 903.4 mGy*cm. Findings: Evaluation is degraded by respiratory motion. Lungs /pleura: There is a trace right pneumothorax. There is minimal atelectasis / scarring. Heart/Great vessels: No cardiomegaly or pericardial effusion. The aorta is unremarkable. There are mild atherosclerotic aortic calcifications. There are coronary artery calcifications. Mediastinum: Unremarkable. Soft tissues/Bones: Acute displaced fractures of the right lateral 8th and 9th ribs with adjacent subcutaneous emphysema. Upper abdomen: Unremarkable. Impression: 1. Acute displaced fractures of the right lateral 8th and 9th ribs with adjacent subcutaneous emphysema and a trace right sided pneumothorax. Critical Result: Pneumothorax Findings discussed with DOMINIC Scott at 06/26/2025 01:12 AM, and acknowledged receipt and understanding of the findings. Electronically Signed by:HILDA MELENDEZ MD Date & Time: 06/26/25111 Dictated by: HILDA MELENDEZ MD Dictation date and time: 06/26/25111 Primary Care Provider: NO PRIMARY CARE PROVIDER cc: ANJEL NG MD ~ EDMD DR. NG REVIEWED IMAGES AND AGREES WITH ABOVE FINDINGS Medical Decision Making Additional info obtained from: old records Differential Dx:Considerations: Include: Chest wall contusion, Flail chest, Myocardial contusion, Pneumothorax, Pulmonary contusion, Rib fracture, Renal contusion, Splenic fracture, Tension pneumothorax, Other Departure Time of Disposition: 01:24 Disposition: 09 ADMITTED INPATIENT Admitted to Inpatient Unit: yes, to hospitalist Admission Level of Care: Med/Surg with Tele Impression: Primary Impression: Fall Qualified Codes: W19.XXXA - Unspecified fall, initial encounter Additional Impressions: Head contusion Qualified Codes: S00.03XA - Contusion of scalp, initial encounter Fracture of rib Qualified Codes: S22.41XA - Multiple fractures of ribs, right side, initial encounter for closed fracture Pneumothorax Qualified Codes: J93.9 - Pneumothorax, unspecified Condition: Guarded Referrals: NO PRIMARY CARE PROVIDER (PCP) Education Educated: Patient, Family Educated regarding: diagnosis, treatment, prognosis, need for follow up, other Signature Scribe Signature: Scribed for Anjel Ng MD by Queta Zheng . 06/25/25 23:08 Attestation: The note accurately reflects work and decisions made by me.Anjel Ng MD 06/25/25 22:39 ANJEL NG MD Jun 25, 2025 22:39
[2025-06-25 22:54] LABS: MEAN PLATELET VOLUME 6.9 FL (7.4-10.4); RED CELL DISTRIBUTION WIDTH 14.3 % (11.5-14.5)
[2025-06-25 23:02] LABS: CREATININE 0.81 MG/DL (0.40-0.90); TOTAL CARBON DIOXIDE 29.0 MMOL/L (24-32); eCRCL 53 ML/MIN; eGFR 68 ML/MIN
--- NOTE | 2025-06-25 23:33 | RADIOLOGY REPORT ---
FRONTAL CHEST AND right RIB RADIOGRAPHS HISTORY: trauma right lower rib pain TECHNIQUE: Multiple views of the right ribs with frontal view of the chest. COMPARISON: None. FINDINGS/IMPRESSION: Acute displaced fractures of the lateral right 9th and 10th ribs. There is subcutaneous emphysema. No definite pneumothorax, though CT would be more sensitive in further evaluation if clinically indicated.
[2025-06-26] VITALS (10 sets, daily range): BP systolic 133–162; BP diastolic 61–89; PULSE 61–85; RESP 12–22; TEMP 97–97.7; O2SAT 90–95
[2025-06-26] MEDS: HYDROmorphone inj. 0.5 MG/0.5 ML DISP.SYRIN IV ONE (00:19)
--- NOTE | 2025-06-26 00:52 | RADIOLOGY REPORT ---
EXAM: CT CT HEAD INDICATION: trauma TECHNIQUE: CT of the head without intravenous contrast. Radiation Dose Information: CT Dose: CTDI volume is 57.29 mGy. Dose-length product is 1023.59 mGy*cm The dose indicators for CT are the volume Computed Tomography (CT) Dose Index (CTDIvol) and the Dose Length Product (DLP), and are measured in units of mGy and mGy-cm, respectively. These indicators are not patient dose, but values generated from the CT scanner acquisition factors. The report includes radiation exposure data for exposures received during this examination. COMPARISON: MR MRI HEAD on DOS: 04/30/25, CT CT HEAD on DOS: 05/07/24, CT STROKE ALERT on DOS: 09/14/22 FINDINGS: No acute territorial infarct, intracranial hemorrhage, or mass effect. There are global involutional changes with compensatory prominence of the ventricles and sulci. Patchy periventricular and subcortical white matter hypoattenuation is nonspecific but may be related to small vessel ischemic disease. The orbits are normal. The paranasal sinuses and mastoid air cells are clear. The osseous structures are unremarkable. IMPRESSION: 1. No acute territorial infarct, intracranial hemorrhage, or mass effect. 2. Age-related involutional changes. Chronic microvascular changes.
--- NOTE | 2025-06-26 01:16 | RADIOLOGY REPORT ---
EXAM: CT CT CHEST History: trauma Comparison Study: None TECHNIQUE: Multidetector CT of the chest was performed. Imaging was performed without IV contrast. Axial, coronal, and sagittal multiplanar reformats were obtained from the axial data set by the technologist. Radiation Dose : CTDI vol 21.43 mGy, DLP 903.4 mGy*cm. Findings: Evaluation is degraded by respiratory motion. Lungs /pleura: There is a trace right pneumothorax. There is minimal atelectasis / scarring. Heart/Great vessels: No cardiomegaly or pericardial effusion. The aorta is unremarkable. There are mild atherosclerotic aortic calcifications. There are coronary artery calcifications. Mediastinum: Unremarkable. Soft tissues/Bones: Acute displaced fractures of the right lateral 8th and 9th ribs with adjacent subcutaneous emphysema. Upper abdomen: Unremarkable. Impression: 1. Acute displaced fractures of the right lateral 8th and 9th ribs with adjacent subcutaneous emphysema and a trace right sided pneumothorax. Critical Result: Pneumothorax Findings discussed with DOMINIC Scott at 06/26/2025 01:12 AM, and acknowledged receipt and understanding of the findings.
[2025-06-26] MEDS ORDERED: magnesium sulf-water 4G/100mL 100 ML IV PRN (02:50)
[2025-06-26] MEDS ORDERED: magnesium sulf-water 2g/50mL 50 ML IV PRN (02:50)
[2025-06-26] MEDS ORDERED: potassium Cl 40MEQ/1/2NS 520ml 520 ML IV PRN (02:50)
[2025-06-26] MEDS ORDERED: HYDROcodone/acetaminophen 5mg/325mg tablet PO PRN (02:50)
[2025-06-26] MEDS ORDERED: magnesium Cl slow-release 64mg tablet PO PRN (02:50)
[2025-06-26] MEDS ORDERED: potassium Cl 20 mEq SR tablet PO PRN ×2 (02:50)
[2025-06-26] MEDS ORDERED: HYDROcodone/acetaminophen 10/325mg tab PO PRN (02:50)
--- NOTE | 2025-06-26 03:19 | HISTORY AND PHYSICAL-Residence ---
History & Physical Providers to CC Resident Creating Document: DONNA AYERS, RES ~ History of Present Illness Primary Medical Doctor: DARELL PANIAGUA Reason for Admit\Complaint: fall, right chest wall pain History of Present Illness 79-year-old female with history of bipolar disorder came to the ED due to right- sided chest wall pain after a fall. She states that she slipped on water and fell and hit her head. She states that she did not lose consciousness and has no confusion or memory loss after the fall. She states that she had right-sided chest wall pain with a severity of 9/10 after the fall, and her pain is at a severity of 4/10 now after the Dilaudid in the ED and states that the pain increases on taking deep breath. She has nausea and dry heaves due to the pain. She denies shortness of breath. She states that she has had falls for the past year due to loss of balance, but does not lose consciousness. She has a scheduled Neurology consultation in July to get evaluated for Parkinson's. She uses a walker. She states that she has tremors and has not been able to put on her earrings. She denies tremor at rest. She states that she has urgency and stress incontinence. She denies burning micturition and frequency. She denies fever, chills. She states that she has constipation and her last bowel movement was a couple days ago. She denies abdominal pain, changes in appetite and weight. Allergies: Coded Allergies: prochlorperazine edisylate (Verified Adverse Reaction, Severe, DROOPING OF FACE AND LEFT SIDE OF BODY, 06/25/25) prochlorperazine maleate (Verified Adverse Reaction, Severe, DROOPING OF FACE AND LEFT SIDE OF BODY, 06/25/25) carbamazepine (Verified Adverse Reaction, Unknown, BLOOD IN URINE, 06/25/25) meperidine HCl (Verified Adverse Reaction, Unknown, NAUSEA, 06/25/25) metoclopramide HCl (Verified Adverse Reaction, Unknown, STIFFNESS OF FINGER AND BACK, 06/25/25) morphine (Verified Adverse Reaction, Unknown, VOMITTING, 06/25/25) Uncoded Allergies: STRAWBERRIES (Allergy, Intermediate, 07/04/11) RASH Home Medications Home Medications Active Reported Multi Vitamin Daily (Multivitamin) 1 Each Tablet 1 Tab PO DAILY 30 Days Lamotrigine 150 Mg Tablet 1 Tab PO BID Ambien (Zolpidem Tartrate) 10 Mg Tablet 1 Tab PO HS PRN Trazodone HCl 100 Mg Tablet 3 Tab PO HS Proair Hfa (Albuterol Sulfate) 1 Puff Inh 2 Puffs IH Q4H PRN Minipress (Prazosin Hcl) 5 Mg Capsule 1 Cap PO HS 30 Days Wixela 100-50 Inhub (Fluticasone Propion/Salmeterol) 1 Each Blst.w.dev 1 Puff IH BID Emgality Syringe (Galcanezumab-Gnlm) 120 Mg/1 Ml Syringe 1 Ml SQ [id number] Ativan* (Lorazepam) 1 Mg Tablet 1-2 Mg PO TID PRN PRN Estrace* (Estradiol) 1 Mg Tablet 1 Tab PO DAILY Vagifem (Estradiol) 10 Mcg Tablet 1 Tablet VG Furosemide 20 Mg Tablet 40 Mg PO DAILY PRN Past Medical History Past Medical History Bipolar I Migraine Osteoarthritis Anxiety/depression Past Surgical History Surgical History Comment Right hip replacement Back surgery Hysterectomy for endometriosis Left Bunionectomy Past Social History Social History Comment She drinks alcohol occasionally, a glass of wine 2-3 times a week She denies smoking and recreational drug use She lives with her at home Alcohol Use: Occasionally Drug Use: None Lives with: Spouse Lives In: Home Occupation: unemployed ROS All Other Systems: Reviewed and Negative ROS Constitutional: No fever, chills, dizziness, weight gain or loss Eyes: No pain, erythema, discharge, blurring of vision ENT: No sore throat, epistaxis, tinnitus Cardiovascular: No chest pain, palpitations, syncope, lower extremity edema, paroxysmal nocturnal dyspnea Respiratory: Right-sided chest wall pain, No Shortness of breath and cough, No hemoptysis. Gastrointestinal: Reports nausea, No Abdominal pain, vomiting, constipation,diarrhea. Normal appetite. No hematemesis or melena. Musculoskeletal: No Swelling an d pain in bilateral lower legs. Integumentary: No change in skin, hair, nails. No swelling, bruising, abrasions Neurologic: Reports headache, No weakness, neck pain, numbness or tingling of the extremities, Psychiatric: No delusions, depression, loss of interest in normal activity or change in sleep pattern, hallucinations, suicidal ideations Endocrine: No fatigue, no weakness. polydipsia, polyuria, change in appetite, heat or cold intolerance, sweating, dry skin Hematological: No bleeding, petechiae, bruising Allergies: No asthma or urticaria Exam Vitals: Vital Signs Date Time Temp Pulse Resp B/P (MAP) Pulse Ox O2 Delivery O2 Flow Rate FiO2 06/26/25 02:20 98.5 72 18 147/74 (98) 94 0 General: Awake , alert, and oriented x4, resting comfortably in bed, in mild distress HEENT: Atraumatic, normocephalic, EOMI, anicteric sclera ; pink conjunctiva Neck: Trachea midline. Supple, full range of motion, no JVD Cardiac: Regular rhythm, regular rate with no murmurs all over the precordium. Respiratory: Right ribs are tender on palpation, Equal breath sounds bilaterally, no tachypnea, no wheezing ,rub or rales Gastrointestinal: Abdomen symmetric, non-distended, soft, non-tender, normal bowel sounds x4 quadrant, normoactive, no hepatosplenomegaly Musculoskeletal: 8 cm healed scar present on the left medial foot, multiple small bruises present on right arm, No pedal edema, no cyanosis Neurological: Mild tremor on outstretching of hands, no resting tremor noted, Speech is clear, alert, and oriented x 4. No motor or sensory deficit, deep tendon reflexes normal, cerebellar intact. Cranial nerves II-XII intact. Skin: Warm and dry Diagnostic Data Last Recorded Lab Results: 06/25/[id number] Diagnostic Data: Laboratory Tests Test 06/26/25 03:03 Coagulation Comments Additional Plan 79-year-old female with history of bipolar I, osteoarthritis, migraine admitted for rib fracture. Right 9th and 10th displaced rib fractures 2/2 mechanical fall Trace pneumothorax No shortness of breath Blood pressure is on the higher side-149/76, probably due to pain Pulse ox is 94% WBC is normal H&H and Electrolytes are normal Chest x-ray shows displaced fractures of the lateral right 9th and 10th ribs and subcutaneous emphysema Chest CT shows displaced fractures of the right lateral 8th and 9th ribs with adjacent subcutaneous emphysema and a trace right-sided pneumothorax Head CT shows no abnormalities other than age-related involutional changes and chronic microvascular changes Plan: Pain controlled with IV Dilaudid 0.5 mg q.4h, Kite 5 mg/10 mg p.r.n., patient is allergic to morphine Nausea controlled with IV Zofran, patient allergic to metoclopramide and prochlorperazine Follow up with chest x-ray in the a.m. Continue telemetry monitoring History of mechanical falls Head CT shows no abnormality Fall precautions in place Follow up outpatient and Neurology for evaluation of Parkinson's vs vertigo History of bipolar I disorder History of anxiety/depression Continued home medications lamotrigine 150 mg b.i.d., trazodone 300 mg HS History of migraine Patient takes Galcanezumab-Gnlm 1 mL SubQ once every month, follow up outpatient I spent a total of 18 minutes reviewing various resuscitative measures/ACP with the patient. The patient decided to be DNR. Code status: DNR DVT prophylaxis: SCD Pain management: IV Dilaudid 0.5 mg, Kite 5 mg/10 mg Diet/nutrition: Regular diet Prognosis: Guarded Disposition: Continue pain management, follow up with repeat chest x-ray, PT eval and DC plan Resident MD attestation: The patient note has been reviewed and supervised by senior residents PGY-2/ PGY-3. Patient was seen, examined and discussed with attending physician. Donna Ayers MD Internal Medicine resident, PGY-1 Attending I saw this patient via the video system and discussed the assessment and plan with the resident team I agree with note as documented Date of Service: Jun 26, 2025 Billing Provider: AIDA HUANG MD, PREETHI, RES Jun 26, 2025 03:19 AIDA HUANG MD Jun 26, 2025 09:05
[2025-06-26 03:24] LABS: APTT 26 SECONDS (22-32); INR 1.0 INR
[2025-06-26 03:32] LABS: CREATININE 0.79 MG/DL (0.40-0.90); PHOSPHORUS 3.5 MG/DL (2.3-4.5); PRO BRAIN NATRIURETIC PEPTIDE 70 PG/ML (0-450); TOTAL CARBON DIOXIDE 29.6 MMOL/L (24-32); eCRCL 54 ML/MIN; eGFR 70 ML/MIN
[2025-06-26] MEDS: ondansetron/PF 4mg/2ml inj IV PRN ×2 (04:07→10:09)
[2025-06-26] MEDS: HYDROmorphone inj. 0.5 MG/0.5 ML DISP.SYRIN IV PRN (04:12)
[2025-06-26] MEDS ORDERED: PRAZ2CAP2 PO (04:56)
[2025-06-26] MEDS ORDERED: PRAZ1CAP5 PO (04:56)
[2025-06-26] MEDS: K and/or MAG REPLACEMENT MC SCH (08:00)
[2025-06-26] MEDS: ESTRADIOL 10 MCG VG SCH (08:00)
--- NOTE | 2025-06-26 08:26 | RADIOLOGY REPORT ---
CHEST RADIOGRAPH Indication: pneumothorax Technique: Single frontal view of the chest was obtained Comparison: CT CT CHEST on DOS: 06/26/25, DI UNI RIBS WITH PA CHEST on DOS: 06/25/25, CHEST,SINGLE VIEW on DOS: 09/14/22, CHEST,SINGLE VIEW on DOS: 06/14/22, CHEST,SINGLE VIEW on DOS: 06/11/20 FINDINGS: Acute displaced fractures of the right lateral 8th and 9th ribs with adjacent subcutaneous emphysema and a trace right sided pneumothorax. IMPRESSION: Acute displaced fractures of the right lateral 8th and 9th ribs with adjacent subcutaneous emphysema and a trace right sided pneumothorax. No interval improvement.
[2025-06-26] MEDS: docusate sod 100mg capsule PO SCH ×2 (08:41→20:00)
[2025-06-26] MEDS: metoclopramide 5 mg/ml inj IV ONE (12:45)
--- NOTE | 2025-06-26 17:56 | PROGRESS NOTE- Residence ---
Progress Note - Resident Providers to CC Resident Creating Document: STARLA SANDERSON, FALGUNI ~ Antibiotic Timeout Antibiotic Ordered?: No Subjective Patient was seen and examined at bedside. Patient complains of severe pain in right lateral chest of intensity 8/10. Patient complains of difficulty to get out of the bed due to pain. Patient is comfortable with elevation of bed 30 degree. Patient denies any difficulty of breathing, dizziness, palpitations, dizziness. Objective Vital Signs Date Time Temp Pulse Resp B/P (MAP) Pulse Ox O2 Delivery O2 Flow Rate FiO2 06/26/25 16:23 16 06/26/25 15:00 97.1 70 142/61 (88) 90 Room Air 06/26/25 08:00 0.0 Result Diagram: 06/25/25 2246 06/26/25 0559 Awake , alert and oriented to time,place, person,not in distress HEENT: Atraumatic, normocephalic, PERRLA, EOMI, anicteric sclera ; pink conjunctiva, moist mucos membranes Neck: Trachea midline. Supple, normal range of motion, no JVD, no lymphadenopathy Chest and Respiratory: Tenderness on palpation of right lateral chest. Equal breath sounds bilaterally, no tachypnea, wheezing, ronchi,rubs .Chest wall is symmetric and without deformity. Cardiac: S1, S2 heard,Regular rate and rhythm, no murmurs heard. Abdomen: Soft, No tenderness, No guarding or rigidity, Lockwood's sign negative. normal bowel sounds x4 quadrant, no hepatosplenomegaly MSK: 8 cm healed scar present on the left medial foot, multiple small bruises present on right arm,Range of motion of all extremities are normal. There is no joint pain or joint swelling or joint erythema. There is no muscle pain or tenderness or swelling. Extremities: warm, well-perfused, No cyanosis, clubbing, 2+ pulses felt Neurological: Speech is clear, alert, and oriented x 4. No sensory or motor deficits. Cranial nerves II-XII intact. Skin: Warm and dry Psychiatry: Affect and mood are normal Coagulation Studies Laboratory Tests Test 06/26/25 03:03 Prothrombin Time 10.4 SECONDS (9.0-12.0) INR International Normalized Ratio 1.0 INR Activated Partial Thromboplast Time 26 SECONDS (22-32) Coagulation Comments Advance Care Planning Advanced Care plannin - 30 Minutes Assessment Assessment 79 years old female patient admitted with fracture of right lateral rib due to fall. Patient was admitted with concern of possibile of pneumothorax. Plan Plan Right 9th and 10th displaced rib fractures 2/2 mechanical fall Trace pneumothorax, resolving Patient has no difficulty of breathing Patient unable to get out of the bed due to pain Blood pressure is 142/61, probably due to pain Blood pressure is on the higher side-149/76, probably due to pain Pulse ox is 90 saturation on room air Chest x-ray shows displaced fractures of the lateral right 9th and 10th ribs and subcutaneous emphysema Chest CT shows displaced fractures of the right lateral 8th and 9th ribs with adjacent subcutaneous emphysema and a trace right-sided pneumothorax Head CT shows no abnormalities other than age-related involutional changes and chronic microvascular changes Plan: patient is allergic to morphine Pain controlled with IV Dilaudid 1 mg q.4h, and Percocet 10/325 mg p.r.n., Nausea controlled with IV Zofran, IV Reglan p.r.n. Ordered physical therapy History of mechanical falls Head CT shows no abnormality Fall precautions in place Follow up outpatient and Neurology for evaluation of Parkinson's vs vertigo Ordered physical therapy History of bipolar I disorder History of anxiety/depression Continued home medications lamotrigine 150 mg b.i.d., trazodone 300 mg HS History of migraine Patient takes Galcanezumab-Gnlm 1 mL SubQ once every month, follow up outpatient Code status: DNR DVT prophylaxis: SCD Pain management: IV Dilaudid/Percocet Diet/nutrition: Regular diet Physical therapy: Ordered Disposition: Continue pain management, PT eval and DC plan Resident attestation: The patient note has been reviewed and supervised by senior residents PGY-3. Patient was seen, examined and discussed with attending physician. Anisha Sanderson MD Internal Medicine Resident, PGY 1 Date of Service: Jun 26, 2025 Billing Provider: LIZBETH COYNE MD,STARLA SCHAEFFER, RES Jun 26, 2025 17:56
[2025-06-26] MEDS: psyllium seed 5.8 gm packet (sugar-free) PO SCH (20:02)
[2025-06-26] MEDS: prazosin 5mg capsule PO SCH (20:03)
[2025-06-26] MEDS: mag hydrox/Alum hydrox/simeth 30ml oral suspension PO PRN (22:25)
[2025-06-27 02:00] VITALS: BP 139/61; PULSE 85; RESP 11; TEMP 97.7; O2SAT 94
[2025-06-27 06:00] VITALS: BP 127/62; PULSE 87; RESP 14; TEMP 97.4; O2SAT 95
[2025-06-27 06:29] LABS: MEAN PLATELET VOLUME 7.2 FL (7.4-10.4); RED CELL DISTRIBUTION WIDTH 14.1 % (11.5-14.5)
[2025-06-27 06:54] LABS: CHOL/HDL RATIO 1.5 (0.00-4.99); CREATININE 0.81 MG/DL (0.40-0.90); LDL CHOLESTEROL 30 MG/DL (50-100); TOTAL CARBON DIOXIDE 32.2 MMOL/L (24-32); eCRCL 53 ML/MIN; eGFR 68 ML/MIN
--- NOTE | 2025-06-27 11:30 | RADIOLOGY REPORT ---
AP portable chest Comparison: 06/26/2025 CLINICAL INDICATION: monitoring trace right sided pneumothorax FINDINGS: Heart size is normal. No infiltrates or effusions. No pneumothorax seen. Right-sided rib fractures. IMPRESSION: 1. No pneumothorax is seen on this exam.
[2025-06-27] MEDS: HYDROcodone/acetaminophen 5mg/325mg tablet PO PRN (11:52)
[2025-06-27 12:00] VITALS: BP 114/59; PULSE 85; RESP 15; TEMP 98.7; O2SAT 93
[2025-06-27 15:00] VITALS: BP 135/67; PULSE 93; RESP 18; TEMP 98.7; O2SAT 94
[2025-06-27 16:31] LABS: LEUKOCYTE ESTERASE ,URINE NEGATIVE (Neg); NITRITES, URINE NEGATIVE (Neg); OCCULT BLOOD,URINE SMALL (Neg)
[2025-06-27 16:37] LABS: UA COLLECTION TYPE NON-SPECIFIED
[2025-06-27 16:38] LABS: SQUAMOUS EPITHELIAL CELL,UR FEW /LPF (FEW)
[2025-06-27] MEDS: magnesium hydroxide 30ml (MOM) UD suspension PO PRN (17:20)
--- NOTE | 2025-06-27 17:28 | PROGRESS NOTE- Residence ---
Progress Note - Resident Providers to CC Resident Creating Document: ANGELIQUE KEATING RES ~ Antibiotic Timeout Antibiotic Ordered?: No Subjective Patient was seen at her bedside. Her (Ubaldo) was also present who expressed inability to provide care at home. Physical therapy noted severe deconditioning and poor balance, recommending post-acute rehab placement. Case management (Janelle) notified, and referral sent; patient is currently awaiting placement to rehab facility. Objective Vital Signs Date Time Temp Pulse Resp B/P (MAP) Pulse Ox O2 Delivery O2 Flow Rate FiO2 06/27/25 11:52 15 06/27/25 06:30 91 06/27/25 02:00 97.7 139/61 (87) 94 Room Air 06/26/25 08:00 0.0 General: Awake and Alert, no acute distress. HEENT: Conjunctiva pink, Sclera clear, Mucus Membranes moist. Neck: Supple without masses and tenderness. Resp: Lateral chest tenderness on palpation Heart: Regular Rate and rhythm, normal S1 and S2 without murmur, rub or gallop. Abdomen: Soft and non tender no organomegaly Extremities: No cyanosis,clubbing or edema. Skin: Warm and Dry. Result Diagram: 06/27/25 0541 06/27/25 0541 Coagulation Studies Laboratory Tests Test 06/26/25 03:03 Prothrombin Time 10.4 SECONDS (9.0-12.0) INR International Normalized Ratio 1.0 INR Activated Partial Thromboplast Time 26 SECONDS (22-32) Coagulation Comments Advance Care Planning Advanced Care plannin - 30 Minutes Assessment Assessment Patient is an 79-year-old female admitted with displaced fracture secondary to a mechanical fall, with a history of recurrent falls and ongoing evaluation for Parkinson's disease. CT head was normal. Past medical history includes bipolar disorder, and migraine. Plan Plan 1. Displaced rib fracture due to mechanical fall Recurrent falls, likely multifactorial; deconditioning, possible parkinsonism, and gait instability Pain controlled; continue supportive care and fall precautions 2. Recurrent falls, evaluation for Parkinson's disease CT head negative for acute pathology Neurology to continue outpatient evaluation for PD Monitor for tremor, rigidity, and bradykinesia 3. Severe deconditioning/gait instability PT/OT evaluation completed; patient unable to ambulate independently or transfer safely Rehab placement strongly recommended for functional recovery and fall prevention Case management (Emma) coordinating transfer; awaiting placement 4. Bipolar disorder, stable Continue home medications i.e. lamotrigine 150 mg p.o. b.i.d. and trazodone 300 mg HS Monitor mood, orientation, and sleep 5. Migraine, stable No acute headache; continue home migraine regime i.e. Glacanezumab SQ monthly, OP Continue to monitor symptoms Code status: DNR DVT prophylaxis: SCD Disposition: Medically stable for discharge once post acute rehab placement confirmed. updated in and agreement with plan. Angelique Keating Internal Medicine Resident, PGY-3 Date of Service: Jun 27, 2025 Billing Provider: LIZBETH COYNE MD Common Visit Codes: [id number] INP/OBS CARE(HIGH) ANGELIQUE KEATING, RES Jun 27, 2025 17:28 LIZBETH COYNE MD Jun 28, 2025 09:02
[2025-06-27 18:40] VITALS: BP 138/70; PULSE 91; RESP 20; TEMP 98.5; O2SAT 93
[2025-06-27 22:00] VITALS: BP 130/65; PULSE 88; RESP 18; TEMP 98; O2SAT 94
[2025-06-28 02:00] VITALS: BP 132/68; PULSE 90; RESP 16; TEMP 97.3; O2SAT 96
[2025-06-28 06:00] VITALS: BP 138/69; PULSE 91; RESP 12; TEMP 97; O2SAT 91
[2025-06-28 06:37] LABS: MEAN PLATELET VOLUME 7.3 FL (7.4-10.4); RED CELL DISTRIBUTION WIDTH 14.4 % (11.5-14.5)
[2025-06-28 06:49] LABS: CREATININE 0.71 MG/DL (0.40-0.90); TOTAL CARBON DIOXIDE 33.3 MMOL/L (24-32); eCRCL 60 ML/MIN; eGFR 79 ML/MIN
[2025-06-28 07:00] VITALS: BP 138/69; PULSE 91; RESP 12; TEMP 97; O2SAT 91
[2025-06-28 07:08] VITALS: RESP 14
[2025-06-28 11:00] VITALS: BP 151/69; PULSE 90; RESP 18; TEMP 97.3; O2SAT 93
[2025-06-28] MEDS ORDERED: OXYC1TAB17 PO (11:17)
[2025-06-28] MEDS ORDERED: DOCU-148 PO (11:19)
--- NOTE | 2025-06-28 17:33 | DISCHARGE SUMMARY-Residence ---
Discharge Summary Providers to CC Resident Creating Document: STARLA DAVIS MAKSIM, RES ~ Discharge Summary Admission Diagnosis: PNEUMOTHORAX Hospital Course DATE OF ADMISSION: June 26, 2025 DATE OF DISCHARGE: June 28, 2025 Discharge Diagnosis\Comment: Displaced rib fracture due to mechanical fall Recurrent falls, likely multifactorial; deconditioning, possible parkinsonism, and gait instability Bipolar disorder Migraine Operations\Procedures: None Consultants: None Complications: None Condition on DC: Stable New Medications: Docusate Sodium (Colace) 100 Mg Capsule 1 CAP PO Q12H for 30 Days, #60 CAP 0 Refills Oxycodone Hcl/Acetaminophen (Oxycodone-Acetaminophen 10-325) 10 Mg-325 Mg Tablet 2 TAB PO Q6H PRN for severe pain (7-10), #30 TAB Continued Medications: Albuterol Sulfate (Proair Hfa) 1 Puff Inh 2 PUFFS IH Q4H PRN for SOB or wheezing Estradiol (Vagifem) 10 Mcg Tablet 1 TABLET VG SUN,SUN, TABLET Estradiol* (Estrace*) 1 Mg Tablet 1 TAB PO DAILY, TAB Fluticasone Propion/Salmeterol (Wixela 100-50 Inhub) 1 Each Blst.w.dev 1 PUFF IH BID Furosemide (Furosemide) 20 Mg Tablet 40 MG PO DAILY PRN for SWELLING, TAB Galcanezumab-Gnlm (Emgality Syringe) 120 Mg/1 Ml Syringe 1 ML SQ [id number] Lamotrigine (Lamotrigine) 150 Mg Tablet 1 TAB PO BID Lorazepam* (Ativan*) 1 Mg Tablet 1-2 MG PO TID PRN PRN for anxiety/agitation, TAB Multivitamin (Multi Vitamin Daily) 1 Each Tablet 1 TAB PO DAILY for 30 Days, #30 TAB 0 Refills Prazosin Hcl (Minipress) 5 Mg Capsule 1 CAP PO HS for 30 Days, #30 CAP Prazosin Hcl (Prazosin Hcl) 1 Mg Capsule 1 CAP PO DAILY Prazosin Hcl (Prazosin Hcl) 2 Mg Capsule 1 CAP PO HS Trazodone HCl (Trazodone HCl) 100 Mg Tablet 3 TAB PO HS Zolpidem Tartrate (Ambien) 10 Mg Tablet 1 TAB PO HS PRN for sleep Discharge Summary: Hospital course: A 79-year-old female with history of bipolar disorder came to the ED due to right-sided chest wall pain after a fall. She states that she slipped on water and fell and hit her head. She states that she did not lose consciousness and has no confusion or memory loss after the fall. She states that she had right-s ided chest wall pain with a severity of 9/10 after the fall,She has nausea and dry heaves due to the pain. She states that she has constipation and her last bowel movement was a couple days ago. She denies abdominal pain, changes in appetite and weight. She denies shortness of breath. She states that she has tremors and has not been able to put on her earrings She states that she has had falls for the past year due to loss of balance, but does not lose consciousness. She has a scheduled Neurology consultation in July to get evaluated for Parkinson's. She uses a walker. . She denies tremor at rest. She states that she has urgency and stress incontinence. She denies burning micturition and frequency. She denies fever, chills. Acute displaced fractures of the lateral right 9th and 10th ribs on chest x-ray with concern of pneumothorax. Progressive x-rays showed mild trace pneumothorax which was not significant. Pain was controlled with IV Dilaudid and Percocet. Patient was stable at the time of discharge. Discharge course: Patient was unable to ambulate independently transfer safely on physical therapy evaluation. PT recommended post-acute care for functional recovery and fall prevention but patient refused to go to rehab center. Patient choosed to go home. CT head negative for acute pathology, patient was advised to continue outpatient evaluation with neurology for Parkinson's disease and falls. Imaging studies performed during hospitalization: Chest x-ray: 06/25/25: Acute displaced fractures of the lateral right 9th and 10th ribs. There is subcutaneous emphysema. No definite pneumothorax, though CT would be more sensitive in further evaluation if clinically indicated. 06/26/25:Acute displaced fractures of the right lateral 8th and 9th ribs with adjacent subcutaneous emphysema and a trace right sided pneumothorax. No interval improvement. 06/27/25: No pneumothorax is seen on this exam. CT chest: cute displaced fractures of the right lateral 8th and 9th ribs with adjacent subcutaneous emphysema and a trace right sided pneumothorax. Head CT: 1. No acute territorial infarct, intracranial hemorrhage, or mass effect. 2. Age-related involutional changes. Chronic microvascular changes. Vital Signs Date Time Temp Pulse Resp B/P (MAP) Pulse Ox O2 Delivery O2 Flow Rate FiO2 06/28/25 11:00 97.3 90 18 151/69 (96) 93 Room Air 06/28/25 02:00 0.0 21 Laboratory Tests Test 06/27/25 05:41 06/27/25 16:10 06/28/25 06:01 White Blood Count 7.2 X10'3 5.7 X10'3 Red Blood Count 3.51 X10'6 3.51 X10'6 Hemoglobin 11.1 g/dl 11.1 g/dl Hematocrit 32.6 % 32.8 % Mean Corpuscular Volume 92.9 FL 93.6 FL Mean Corpuscular Hemoglobin 31.5 PG 31.6 PG Mean Corpuscular Hemoglobin Concent 33.9 g/dL 33.8 g/dL Red Cell Distribution Width 14.1 % 14.4 % Platelet Count 173 X10'3 172 X10'3 Mean Platelet Volume 7.2 FL 7.3 FL Neutrophils (%) (Auto) 77.5 % 62.3 % Lymphocytes (%) (Auto) 10.9 % 20.1 % Monocytes (%) (Auto) 11.1 % 14.3 % Eosinophils (%) (Auto) 0.3 % 2.7 % Basophils (%) (Auto) 0.2 % 0.6 % Neutrophils # (Auto) 5.6 X10'3 3.5 X10'3 Lymphocytes # (Auto) 0.8 X10'3 1.1 X10'3 Monocytes # (Auto) 0.8 X10'3 0.8 X10'3 Eosinophils # (Auto) 0.0 X10'3 0.2 X10'3 Basophils # (Auto) 0.0 X10'3 0.0 X10'3 CBC Comment Sodium Level 136 MMOL/L 141 MMOL/L Potassium Level 3.8 MMOL/L 4.2 MMOL/L Chloride Level 99 MMOL/L 105 MMOL/L Carbon Dioxide Level 32.2 MMOL/L 33.3 MMOL/L Anion Gap 5 3 Blood Urea Nitrogen 26 MG/DL 14 MG/DL Creatinine 0.81 MG/DL 0.71 MG/DL Estimated GFR/1.73 m2 68 ML/MIN 79 ML/MIN BUN/Creatinine Ratio 32.1 19.7 Glucose Level 134 MG/DL 101 MG/DL Calcium Level 9.0 MG/DL 9.1 MG/DL Albumin 3.2 G/DL 3.2 G/DL Triglycerides Level 66 MG/DL Cholesterol Level 136 MG/DL LDL Cholesterol 30 MG/DL HDL Cholesterol 88 MG/DL Cholesterol/HDL Ratio 1.5 Chemistry Comments Urine Specimen Description Non-specified Urine Color Straw Urine Clarity Clear Urine pH 7.0 Urine Specific [place] <=1.005 Urine Protein Negative mg/dl Urine Glucose (UA) Negative mg/dl Urine Ketones Negative mg/dl Urine Occult Blood Small Urine Nitrite Negative Urine Bilirubin Negative Urine Urobilinogen 0.2 E.U/dL Urine Leukocyte Esterase Negative Urine RBC None seen /HPF Urine WBC 0-4 /HPF Urine Squamous Epithelial Cells Few /LPF Urine Bacteria Few /HPF Urine Culture Indicated Not ind Volume Urine Centrifuged 10 ml Urine Comment Discharge physical exam: General: Awake and Alert, no acute distress. HEENT: Conjunctiva pink, Sclera clear, Mucus Membranes moist. Neck: Supple without masses and tenderness. Resp: Lateral chest tenderness on palpation Heart: Regular Rate and rhythm, normal S1 and S2 without murmur, rub or gallop. Abdomen: Soft and non tender no organomegaly Extremities: No cyanosis,clubbing or edema. Skin: Warm and Dry. *Problems/Diagnosis: (1) Closed traumatic displaced fracture of rib (2) Recurrent falls (3) Physical deconditioning Total Time Spent on D/C: > 30 Minutes Date of Service: Jun 28, 2025 Billing Provider: LIZBETH COYNE MD Common Visit Codes: 38392-[id number]/OBS DISCH DAY >30min STARLA DAVIS, RES Jun 28, 2025 17:32 LIZBETH COYNE MD Jun 28, 2025 21:38
== END 2025-06-28 13:40 | disposition home health service (06) | DRG 57 ==
LOC: ER 22:29 → ED HOLD 06-26 02:09 → PCU 3S 06-26 03:40
PROVIDERS: ADMIT Internal Medicine; ATTEND Internal Medicine
DX: G20.C Parkinsonism, unspecified (principal); J93.9 Pneumothorax, unspecified; S22.41XA Multiple fractures of ribs, right side, initial encounter for closed fracture; F31.9 Bipolar disorder, unspecified; G43.909 Migraine, unspecified, not intractable, without status migrainosus; F41.9 Anxiety disorder, unspecified; Z66 Do not resuscitate; W01.0XXA Fall on same level from slipping, tripping and stumbling without subsequent striking against object, initial encounter; R29.6 Repeated falls; Z90.710 Acquired absence of both cervix and uterus; Z88.5 Allergy status to narcotic agent; Y93.89 Activity, other specified; Y92.89 Other specified places as the place of occurrence of the external cause; Y99.8 Other external cause status; R26.89 Other abnormalities of gait and mobility; S00.03XA Contusion of scalp, initial encounter; J43.9 Emphysema, unspecified
CPT/HCPCS: 36415; 70450; 71045; 71101; 71250; 80048; 80053; 80061; 81001; 82607; 83036; 83735; 83880; 84100; 84132; 85025; 85610; 85730; 87081; 97161; 97530; 99285; A4615; G0378; J1171; J2405; J2765

== ENCOUNTER 2025-07-06 13:28 | Outpatient (CLI) | payer MEDICARE, BC ==
[~2025-07-06 13:28] MED LIST changes: +DOCU-148 PO; +OXYC1TAB17 PO; +PRAZ1CAP5 PO; +PRAZ2CAP2 PO
--- NOTE | 2025-07-06 14:04 | RADIOLOGY REPORT ---
DI CHEST,TWO VIEWS CLINICAL HISTORY: CLOSED FRACTURE OF MULTIPLE RIBS OF RIGHT SIDE COMPARISON: None TECHNIQUE: Frontal and lateral view of the chest was obtained FINDINGS: Lines and Tubes: None Lungs: No focal consolidation. Bibasilar linear densities. Pleura: No effusion. No pneumothorax. Cardiomediastinal contours: Unremarkable Bones: No acute osseous abnormality. Partially visualized cervical fixation hardware. Moderate degenerative changes of the thoracic spine. IMPRESSION: Bibasilar atelectasis. Otherwise, No acute cardiopulmonary disease.
== END 2025-07-06 23:59 | disposition home or self-care (01) ==
LOC: RAD 13:28
PROVIDERS: ATTEND Internal Medicine
DX: S22.41XD Multiple fractures of ribs, right side, subsequent encounter for fracture with routine healing (principal); J98.11 Atelectasis; X58.XXXD Exposure to other specified factors, subsequent encounter
CPT/HCPCS: 71046